=== PATIENT | male | born 1960 | race Caucasian/White ===

== ENCOUNTER 2019-10-08 18:29 | Inpatient (IN) | payer BC ==
[~2019-10-08] VITALS: Ht 180.3 cm; Wt 90.8 kg
[2019-10-08 21:23] VITALS: BP 116/70
[2019-10-08] MEDS ORDERED: DIOVAN HCT 25 M1 TA1 PO (22:22)
[2019-10-08] MEDS ORDERED: TOPROL XL 50MG50 MG PO (22:23)
--- NOTE | 2019-10-08 22:30 | NUR ---
Admitted to room 306 on medical floor- contact and droplet Isolation ,, trasferred from [facility]- VSS, pleasant, alert/oriented, states has no pain/SOB --just very weak-- voiding nakia urine, pt is jaundiced, Hodan FLANNERY here to do admission- will send him down for CT and CXR when radiology is available. Tele put on per orders-
[2019-10-08 23:33] LABS: PROTHROMBIN TIME 11.2 SECONDS (9.7-12.8)
[2019-10-08 23:35] LABS: PARTIAL THROMBOPLASTIN TIME 31.3 SECONDS (26.0-37.0)
[2019-10-08 23:36] LABS: CREATININE, serum 1.22 (0.66-1.25); MAGNESIUM 1.6 mg/dL (1.6-2.3); PHOSPHOROUS 3.6 mg/dL (2.5-4.5)
[2019-10-08 23:38] LABS: POTASSIUM 2.8 mmol/L (3.4-5.0)
[2019-10-09] VITALS (7 sets, daily range): BP systolic 106–130; BP diastolic 50–82; PULSE 70–84; TEMP 96.7–98.2
[2019-10-09 03:09] LABS: TRICYCLIC ANTIDEPRESS URINE NEGATIVE
[2019-10-09 04:11] LABS: MEAN CELL VOLUME 97 fl (80.0-100.0); MEAN CORPUSCULAR HGB CONC 34 g/dl (33.0-37.0); MEAN PLATELET VOLUME 10.5 fl (7.4-10.4); PLATELET COUNT 229 K/mm3 (130-400); RED BLOOD COUNT 2.59 M/mm3 (4.20-5.60); REDCELL DISTRIBUTION WIDTH-CV 12.9 % (11.5-14.5)
[2019-10-09 04:12] LABS: HEMOGLOBIN 8.5 g/dl (13.5-18.0); MEAN CORPUSCULAR HEMOGLOBIN 33 pg (27.0-31.0)
[2019-10-09 04:19] LABS: ALBUMIN 3.5 gm/dL (3.5-5.0); BILIRUBIN,TOTAL 5.5 mg/dL (0.0-1.0); CALCIUM 8.6 mg/dL (8.4-10.2); CREATININE, serum 1.07 (0.66-1.25); POTASSIUM 3.4 mmol/L (3.4-5.0); TOTAL PROTEIN 6.8 gm/dL (6.4-8.2)
[2019-10-09 05:00] LABS: BAND 17 % (0-10); EOSINOPHIL 1 % (0-4); LYMPHOCYTE 17 % (20.0-51.0); NEUTROPHILS 55 % (42.0-75.2); PLATELET ESTIMATE NORMAL (NORMAL); STOMATOCYTE 1+
--- NOTE | 2019-10-09 05:19 | NUR ---
Did have the CT scan done during the night-- VSS, IV fluids now at 100cc/hr, voiding good amounts, denies pain, states just weak-- did not sleep due to meds/procedures all night--
[2019-10-09 10:37] LABS: BASO # 0.1 (0.0-0.2); BASO % 0.8 % (0.0-2.0); EOS # 0.1 (0.0-0.7); EOS % 1.1 % (0-4.0); GRAN # 5.6 (1.4-6.5); GRAN % 67.1 % (42.2-75.2); LYMPH # 1.5 (1.2-3.4); LYMPH % 17.7 % (20.0-51.0); MEAN CELL VOLUME 98 fl (80.0-100.0); MEAN CORPUSCULAR HGB CONC 34 g/dl (33.0-37.0); MEAN PLATELET VOLUME 11.2 fl (7.4-10.4); MONO % 11.6 % (1.7-9.3); PLATELET COUNT 222 K/mm3 (130-400); RED BLOOD COUNT 2.43 M/mm3 (4.20-5.60); REDCELL DISTRIBUTION WIDTH-CV 13.1 % (11.5-14.5)
--- NOTE | 2019-10-09 10:37 | NUR ---
Patient is alert and oriented. denies any pain. Addominal ultrasound was done. 1999 fluid restriction -no free water.1/2NS 100ML IV DISCONTINUED. Dr Latif visited patient.
[2019-10-09 10:38] LABS: HEMATOCRIT 23.7 % (42.0-52.0); MEAN CORPUSCULAR HEMOGLOBIN 33 pg (27.0-31.0)
--- NOTE | 2019-10-09 16:28 | NUR ---
Department Director spoke with patient standing at his door. SW attempted to call patient as he is in contact isolation and patient was not able to hear SW over the phone. Patient lives in [place] with his Carolyn (ph#[phone]) and sees Dr. Lynn for primary care. Patient obtains medications from [facility] with no difficulties. Patient uses hearing aides and no other DME. Patient reports independence with ADLS and plans to return home upon discharge. Patient states he is fairly certain he has a living will completed. No additional needs identified at this time.
--- NOTE | 2019-10-09 20:11 | NUR ---
Denies any pain. Detox score is 0. Call light beside patient. Patient signed health record release form from [facility].
[2019-10-10 00:14] VITALS: BP 115/60; PULSE 90; TEMP 97.1
[2019-10-10 04:22] VITALS: BP 118/68; PULSE 84; TEMP 98.2
[2019-10-10 07:06] LABS: RETIC # 0.14 M/mm3 (0.02-0.16); RETIC % 5.7 % (0.5-3.52)
[2019-10-10 07:14] VITALS: BP 110/67; PULSE 77; TEMP 98.3
[2019-10-10 07:19] LABS: ALBUMIN 3.6 gm/dL (3.5-5.0); BILIRUBIN UNCONJUGATED 1.3 mg/dL (0.0-1.1); BILIRUBIN,DIRECT 3.2 mg/dL (0.0-0.4); BILIRUBIN,TOTAL 4.6 mg/dL (0.0-1.0); POTASSIUM 3.7 mmol/L (3.4-5.0)
[2019-10-10 07:20] LABS: IRON,SERUM 119 ug/dL (35-150)
[2019-10-10 07:24] LABS: PROTHROMBIN TIME 11.2 SECONDS (9.7-12.8)
[2019-10-10 07:30] LABS: TOTAL IRON BINDING CAPACITY 228 ug/dL (261-462)
--- NOTE | 2019-10-10 07:45 | NUR ---
PT IN BED IN PLEASANT MOOD, EAGER TO LEAVE. DENYING PAIN OR DISCOMFORT, MEDICATIONS GIVEN, ASSESSMENT PERFORMED, GATORADE BROUGHT IN PER PT REQUEST. NO OTHER NEEDS AT THIS TIME. PT SCLERA JAUNDICED.
[2019-10-10 08:31] LABS: MEAN CELL VOLUME 101 fl (80.0-100.0); MEAN CORPUSCULAR HGB CONC 33 g/dl (33.0-37.0); MEAN PLATELET VOLUME 10.7 fl (7.4-10.4); PLATELET COUNT 275 K/mm3 (130-400); RED BLOOD COUNT 2.49 M/mm3 (4.20-5.60); REDCELL DISTRIBUTION WIDTH-CV 13.3 % (11.5-14.5)
[2019-10-10 08:37] LABS: HEMATOCRIT 25.2 % (42.0-52.0); HEMOGLOBIN 8.3 g/dl (13.5-18.0); MEAN CORPUSCULAR HEMOGLOBIN 33 pg (27.0-31.0)
[2019-10-10 08:40] LABS: CALCIUM 9.2 mg/dL (8.4-10.2); CREATININE, serum 1.13 (0.66-1.25); MAGNESIUM 1.8 mg/dL (1.6-2.3); POTASSIUM 3.8 mmol/L (3.4-5.0)
[2019-10-10 09:26] LABS: BAND 6 % (0-10); LYMPHOCYTE 20 % (20.0-51.0); METAMYELOCYTE 1 % (0-0); MYELOCYTE 1 % (0-0); NEUTROPHILS 65 % (42.0-75.2); PLATELET ESTIMATE NORMAL (NORMAL)
[2019-10-10] MEDS ORDERED: MAG-OX 400400 MG/TAB PO (09:48)
[2019-10-10] MEDS ORDERED: THIAMINE 1100 MG/TAB PO (09:48)
[2019-10-10] MEDS ORDERED: FOLIC ACID 11 MG/TA1 PO (09:48)
[2019-10-10] MEDS ORDERED: DUO-KAPS1 CAP PO (09:48)
--- NOTE | 2019-10-10 10:46 | NUR ---
Bb Shot Packer attended clinical rounds with the team today. Patient to discharge home today. No additional needs at this time.
--- NOTE | 2019-10-10 10:57 | NUR ---
First visit from the dial printer. No needs right now.
--- NOTE | 2019-10-10 12:30 | NUR ---
PT LEFT FLOOR WTIH BELONGINGS, DISCHARGE EDUCATION PROVIDED, IV DC'D.
[2019-10-11 03:56] LABS: CERULOPLASMIN 46 mg/dL (20-60)
[2019-10-11 10:43] LABS: ALPHA 1 ANTITRYPSIN TOTAL 191.2 mg/dL (())
[2019-10-11 13:46] LABS: ANA SCREEN with REFLEX Negative (Negative)
[2019-10-15 12:30] LABS: ANTISMOOTH MUSCLE ANTIBODY Negative (Negative)
== END 2019-10-10 12:30 | disposition home or self-care (01) | DRG 442 ==
LOC: MEDICAL 18:29
PROVIDERS: Internal Medicine Gastroenterology; Nurse Practitioner Family; Physician Assistant; ADMIT Internal Medicine
DX: K70.0 Alcoholic fatty liver (principal); E87.1 Hypo-osmolality and hyponatremia; N17.9 Acute kidney failure, unspecified; F10.10 Alcohol abuse, uncomplicated; I10 Essential (primary) hypertension; R74.0 Nonspecific elevation of levels of transaminase and lactic acid dehydrogenase [LDH]; E80.6 Other disorders of bilirubin metabolism; E87.6 Hypokalemia; E83.42 Hypomagnesemia; R73.9 Hyperglycemia, unspecified; D64.9 Anemia, unspecified; Z20.828 Contact with and (suspected) exposure to other viral communicable diseases; Z87.891 Personal history of nicotine dependence; Z96.653 Presence of artificial knee joint, bilateral
CPT/HCPCS: 99223-AI; 99232-AI; 99239; J3411; J3475; J7030

== ENCOUNTER 2023-06-03 12:06 | Inpatient (IN) | payer BC ==
[~2023-06-03] VITALS: Ht 180.3 cm; Wt 102.0 kg
[~2023-06-03 12:06] MED LIST: DIOVAN HCT 25 M1 TA1 PO; DUO-KAPS1 CAP PO; FOLIC ACID 11 MG/TA1 PO; MAG-OX 400400 MG/TAB PO; THIAMINE 1100 MG/TAB PO; TOPROL XL 50MG50 MG PO
[2023-06-03 12:23] LABS: HEMOGLOBIN 11.6 g/dl (13.5-18.0); MEAN CELL VOLUME 103 fl (80.0-100.0); MEAN CORPUSCULAR HEMOGLOBIN 34 pg (27-31); MEAN CORPUSCULAR HGB CONC 33 g/dl (33.0-37.0); MEAN PLATELET VOLUME 11.2 fl (7.4-10.4); PLATELET COUNT 222 K/mm3 (130-400); RED BLOOD COUNT 3.39 M/mm3 (4.20-5.60); REDCELL DISTRIBUTION WIDTH-CV 13.6 % (11.5-14.5)
[2023-06-03 12:25] LABS: HEMATOCRIT 34.8 % (42.0-52.0)
[2023-06-03 12:30] LABS: INR 1.2 (0.8-3.0); PROTHROMBIN TIME 13.1 SECONDS (9.7-12.8)
[2023-06-03] MEDS ORDERED: NS 1,000 ML IV ONE (12:30)
[2023-06-03 13:05] LABS: BAND 21 % (0-10); LYMPHOCYTE 8 % (20.0-51.0); METAMYELOCYTE 2 % (0-0); NEUTROPHILS 63 % (42.0-75.2); PLATELET ESTIMATE NORMAL (NORMAL)
[2023-06-03 13:40] LABS: CREATININE, serum 1.96 mg/dL (0.72-1.25); POTASSIUM 3.7 mmol/L (3.5-4.5)
[2023-06-03 13:41] LABS: ALBUMIN 3.6 gm/dL (3.4-4.8); CALCIUM 8.9 mg/dL (8.4-10.2); TOTAL PROTEIN 6.7 gm/dL (6.2-8.1)
[2023-06-03 13:55] LABS: BILIRUBIN,TOTAL 1.2 mg/dL (0.2-1.2)
[2023-06-03] MEDS ORDERED: LR 1,000 ML IV ONE (14:15)
[2023-06-03] MEDS ORDERED: Acetaminophen 325 MG TAB PO PRN (14:30)
[2023-06-03] MEDS ORDERED: Docusate Sodium 100 MG CAP PO PRN (14:30)
[2023-06-03] MEDS ORDERED: Ondansetron 4 MG/2 ML VIAL IV PRN (14:30)
[2023-06-03] MEDS ORDERED: LORazepam 1 MG TAB PO PRN (14:30)
[2023-06-03] MEDS ORDERED: NS 1,000 ML IV SCH (14:30)
[2023-06-03] MEDS ORDERED: Folic Acid 1 MG,Thiamine 200 MG in NS 1,000 ML IV ONE (14:30)
[2023-06-03] MEDS ORDERED: LORazepam 2 MG/ML 1 ML VIAL IV PRN (14:30)
[2023-06-03] MEDS ORDERED: Polyethylene Glycol 3350 17 GM PDS PO PRN (14:30)
[2023-06-03] MEDS ORDERED: [UNRECOGNIZED DRUG - OTHER] IV ONE (14:45)
[2023-06-03] MEDS ORDERED: THIAMINE IV ONE ×2 (14:45→15:15)
[2023-06-03] MEDS ORDERED: NS IV ONE (14:45)
[2023-06-03 14:52] LABS: MAGNESIUM 2.6 mg/dL (1.6-2.6); PHOSPHOROUS 8.2 mg/dL (2.3-4.7)
[2023-06-03] MEDS ORDERED: Cefepime 1 G in Water For Injection,Sterile 10 ML IV SCH ×2 (15:00→18:00)
[2023-06-03] MEDS ORDERED: SODIUM CHLORIDE IV ONE (15:15)
[2023-06-03] MEDS ORDERED: FOLIC ACID 1 MG IV ONE (15:15)
--- NOTE | 2023-06-03 16:20 | NUR ---
Patient to room 316 from the ED with at the bedside. A&Ox4. VSS, HR tachy. IV CDI, fluids infusing. Denies pain, reports discomfort in abdomen r/t needing to urinate, but unable to. Bladder scan 425ml in bladder. Doctor aware. Nurse oriented the patient to location, call light and room. Detox protocol in place.
[2023-06-03] MEDS ORDERED: MELATONIN5 M1 SL (16:24)
[2023-06-03] MEDS ORDERED: Multivitamin TAB PO SCH (17:00)
[2023-06-03] MEDS ORDERED: ALEVE 220MG220 MG PO (17:41)
[2023-06-03] MEDS ORDERED: CULTURELLE1 EAC1 PO (17:42)
[2023-06-03 19:20] LABS: COLLECTION METHOD CLEAN CATCH
[2023-06-03 19:49] LABS: PH 5.5 (5.0-8.5); URINE APPEARANCE Turbid (CLEAR/HAZY); URINE BACTERIA Many /hpf (NONE SEEN); URINE BLOOD 2+ (NEGATIVE); URINE COLOR Yellow (YELLOW); URINE GLUCOSE Negative (NEGATIVE); URINE KETONE 1+ (NEGATIVE); URINE NITRATE Negative (NEGATIVE); URINE PROTEIN(semi-quant) 1+ (NEGATIVE); URINE UROBILINOGEN 0.2 E.U/dL (0.2-1.0)
[2023-06-03 20:00] VITALS: BP 141/68; PULSE 120; TEMP 97.5
[2023-06-03] MEDS ORDERED: Thiamine 100 MG TAB PO SCH (21:00)
--- NOTE | 2023-06-03 22:31 | NUR ---
patient lying in bed alert and oriented x4. pt denies chest pain and shortenss of breath. per pt request [id number]- SHER Schroeder notified of pt indigestion, order for TUMs placed. pt up to ambulate x1 assist and gait belt to bathroom with weak gait, pt visibly short of breath only on exertion and occasional wheezing noted on recovery o2 sats 96% on RA, wheezing and shortness of breath gone overtime with rest. IV in RAC and RF are patent sites clean dry and intact with NS running at 83 ml/hr in RF. right shoulder laceration x2 with stitches, covered with non adherant pads and foam dressings, closed right schaffer abrasion, deep bruising with swelling on left upper thigh, small scattered bruising and scabs noted on extremities, blanchable rash-like redness on chest/neck/back per pt and is chronic, "has been there for a long time". pt has no further needs, questions or concerns at this time. pt requested all four side rails up, education to pt and about how to take side rail down, pt and able to verbally understanding and demonstrate taking rail down on their own. fall precautions in place, call light within reach, will continue to monitor.
[2023-06-03 22:48] VITALS: BP 153/74; PULSE 121; TEMP 98.2
[2023-06-04] VITALS (16 sets, daily range): BP systolic 129–171; BP diastolic 72–89; PULSE 96–121; TEMP 96–98.9
--- NOTE | 2023-06-04 08:00 | NUR ---
Patient awake in bed, at the bedside. A&Ox4. VSS, HR tachy. IV CDI, fluids infusing. Reports some discomfort from fall. Detox protocol in place. Call light within reach. Bed alarm on
[2023-06-04 08:23] LABS: BASO % 0.5 % (0.0-2.0); GRAN # 3.9 K/mm3 (1.4-6.5); GRAN % 63.4 % (42.2-75.2); LYMPH # 1.2 K/mm3 (1.2-3.4); LYMPH % 19.3 % (20.0-51.0); MEAN CORPUSCULAR HGB CONC 36 g/dl (33.0-37.0); MEAN PLATELET VOLUME 11.9 fl (7.4-10.4); MONO % 16.3 % (1.7-9.3); RED BLOOD COUNT 2.38 M/mm3 (4.20-5.60); REDCELL DISTRIBUTION WIDTH-CV 14.1 % (11.5-14.5)
[2023-06-04 08:35] LABS: HEMATOCRIT 22.8 % (42.0-52.0); MEAN CELL VOLUME 96 fl (80.0-100.0); MEAN CORPUSCULAR HEMOGLOBIN 34 pg (27-31); PLATELET COUNT 108 K/mm3 (130-400)
[2023-06-04 08:36] LABS: HEMOGLOBIN 8.1 g/dl (13.5-18.0)
[2023-06-04 08:44] LABS: ALBUMIN 3.2 gm/dL (3.4-4.8); BILIRUBIN,TOTAL 1.5 mg/dL (0.2-1.2); CALCIUM 8.1 mg/dL (8.4-10.2); CREATININE, serum 0.74 mg/dL (0.72-1.25); MAGNESIUM 1.7 mg/dL (1.6-2.6); POTASSIUM 3.3 mmol/L (3.5-4.5); TOTAL PROTEIN 5.5 gm/dL (6.2-8.1)
[2023-06-04] MEDS ORDERED: Folic Acid 1 MG TAB PO SCH (09:00)
[2023-06-04] MEDS ORDERED: *Potassium Replacement Protocol MC SCH (09:45)
[2023-06-04] MEDS ORDERED: Magnesium Sulfate 4% 50 ML IV ONE (09:45)
[2023-06-04] MEDS ORDERED: Potassium Bicarbonate/Citrate 20 MEQ Effervescent TAB PO SCH (09:45)
--- NOTE | 2023-06-04 11:08 | NUR ---
SW met with patient to complete intake. Patient confirmed that he resides with his spouse Carolyn Joaquin [phone], patient informed SW that he does have DPOA at his home. Patient reports that PCP is Dr Zee and pharmacy of [facility]. 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 Local substance use providers/treatment information will be provided to patient. D/C plan: pending further medical recommendations
[2023-06-04] MEDS ORDERED: Vancomycin 1.25 GM,Special Dose/Pharmacy Prepared 1.25 GM in NS 250 ML IV SCH (14:00)
--- NOTE | 2023-06-04 20:30 | NUR ---
Patient resting in bed with at bedside. Denies any pain except for slight pain on his right shoulder. Assessment complete. IV in right AC flushes easily with no complications. IV in right wrist infusing with no complications. Patient stated he would like something to help him sleep tonight. Call light and personal items in reach. Bed in low position and bed alarm on.
--- NOTE | 2023-06-04 21:45 | NUR ---
Hospitalist Alexandre called to get something to help patient sleep per patient request. Recieved orders for 100mg PO trazadone qHS PRN.
[2023-06-04] MEDS ORDERED: traZODone 100 MG TAB PO PRN (22:00)
[2023-06-05] VITALS (263 sets, daily range): BP systolic 114–179; BP diastolic 70–98; PULSE 66–129; TEMP 97.2–98.4; O2SAT 94–100
--- NOTE | 2023-06-05 00:30 | NUR ---
Patient is very agitated and restless at this time and continues to repeat that he wants to get dressed and go home now. Patient is still seeing people/ things that are not there. Attemped to reorient patient and get patient back in bed. Patient is cooperative however still states he is going home. Patient scored 22 on CIWA @0037. 4mg IV Ativan given per protocol. Patient is still very aggitated and anxious @0120 and scoring 23 on CIWA. Hospitalist Alexandre contacted and notified of patients CIWA scores and current state of aggitation and anxiousness. Recieved orders to give 50mg PO librium now and another 2mg of IV Ativan, meds given. Instructed to call back if aggitation, anxiousness, and requests to leave now continue. Patient scoring 21 on CIWA @0320. When asked how many people are in the room patient looked past this nurse on the wall and stated "About 10 people." and then states "I need my shirt, pants, and shoes and I'm going to get the fuck out of here." Hospitalist called and notifed. Recieved orders to transfer to ICU, go ahead and give 4mg IV Ativan, and states he will be up to see him shortly.
[2023-06-05] MEDS ORDERED: Magnesium Sulfate 4% 50 ML IV ONE (03:45)
--- NOTE | 2023-06-05 04:22 | NUR ---
Report called to CARLOS Traylor in ICU. Patient is currently sleeping and will transfer him down when he starts to wake up.
--- NOTE | 2023-06-05 06:30 | NUR ---
Patient attempting to get out of bed again this morning. Patient almost pulled out 18G in right AC, was able to save IV site and new dressing applied. Patient is now scoring 15 on CIWA, 2mg IV ativan given. Patient has recieved a total of 14MG IV Ativan and 50mg PO librium from 06/04 @9296 to 06/05 @0639. Patient now resting back in bed. Call light and personal items in reach. Bed in low position and bed alarm on.
[2023-06-05 07:21] LABS: BASO # 0.1 K/mm3 (0.0-0.2); EOS % 0.2 % (0.0-4.0); GRAN # 2.9 K/mm3 (1.4-6.5); GRAN % 60.4 % (42.2-75.2); HEMATOCRIT 23.1 % (42.0-52.0); HEMOGLOBIN 7.8 g/dl (13.5-18.0); LYMPH # 1.1 K/mm3 (1.2-3.4); LYMPH % 21.6 % (20.0-51.0); MEAN CELL VOLUME 100 fl (80.0-100.0); MEAN CORPUSCULAR HEMOGLOBIN 34 pg (27-31); MEAN CORPUSCULAR HGB CONC 34 g/dl (33.0-37.0); MEAN PLATELET VOLUME 11.9 fl (7.4-10.4); MONO # 0.8 K/mm3 (0.1-0.6); MONO % 16.4 % (1.7-9.3); PLATELET COUNT 101 K/mm3 (130-400)
[2023-06-05 07:42] LABS: ALBUMIN 3.1 gm/dL (3.4-4.8); BILIRUBIN,TOTAL 1.8 mg/dL (0.2-1.2); CALCIUM 8.2 mg/dL (8.4-10.2); CREATININE, serum 0.63 mg/dL (0.72-1.25); MAGNESIUM 2.2 mg/dL (1.6-2.6); POTASSIUM 3.4 mmol/L (3.5-4.5); TOTAL PROTEIN 5.5 gm/dL (6.2-8.1)
[2023-06-05] MEDS ORDERED: Potassium Bicarbonate/Citrate 20 MEQ Effervescent TAB PO SCH (08:00)
--- NOTE | 2023-06-05 10:10 | NUR ---
Initial visit; Patient continues to sleep, hand shoe cutter left card with his offering God's blessings and letting her know of the availability of Spiritual Care at our hospital. She thanked Chaplain shyann holden.
--- NOTE | 2023-06-05 11:52 | NUR ---
PT HAS BEEN AGGITATED SINCE START OF SHIFT CHANGE FOR ELECTROLYSIS ENGINEER. INITIALLY SCORED A 21 ON CIWA AND WAS GIVEN 4MG IV ATIVAN, WHICH DID HELP SOME. 1000 CIWA WAS 8, BUT PT WAS GROGGY STILL ELECTROLYSIS ENGINEER HAD WOKEN HIM UP TO ASSESS. WHEN ELECTROLYSIS ENGINEER WENT TO TAKE PT TEMPERATURE AND VITALS PT STATED "WHATEVER THAT WAS, IF IT HAPPENS AGAIN I WILL KILL EVERYONE IN THIS PLACE". ELECTROLYSIS ENGINEER TOLD PT THAT WE WERE JUST TRYING TO GET HIS VITAL SIGNS TO MAKE SURE THAT HE WAS DOING OKAY. PT WAS IRRITATED AT THIS RESPONSE AND STARTED THROWING HIS BLANKETS AND DEMANDING TO GET HIS CLOTHES AND SHOES SO HE COULD LEAVE. ELECTROLYSIS ENGINEER TOLD PT THAT HE COULD NOT LEAVE AT THIS TIME HE WAS DETOXING, AND THAT IT WAS SAFER FOR HIM TO STAY HERE. PT SETTLED FOR A FEW MINUTES SO WROTER COULD CONTINUE CIWA QUESTIONS. WHEN ELECTROLYSIS ENGINEER ASKED IF PT WAS HAVING ANY VISUAL DISTURBANCES HE STATED "JUST YOUY" IN REFERENCE TO ELECTROLYSIS ENGINEER. PT THEN TRIED GETTING OUT OF BED AGAIN AND THROWING HIS BLANKETS. PT WAS AT BEDSIDE AND ALSO TRIED TO CALM HIM DOWN. 1MG IV ATIVAN WAS ADMINISTERED WHILE WAS TALKING TO PT AND EXPLAINING HE COULD NOT GO HOME. PT LOOKED AT HIS AND STATED "WHY ARE YOU DOING THIS TO ME? THIS IS BULLSHIT". ELECTROLYSIS ENGINEER GAVE PT A FEW MINUTES FOR IV ATIVAN TO TAKE EFFECT AND THEN GOT TECH TO ASSIST WITH PUTTING MESH PANTIES AND A NEW GOWN ON THE PT HE HAD PREVIOUSLY TORN HIS OFF. PT ALSO HAS RIPPED OFF TELEMETRY THIS MORNING AND IS REFUSING TO WEAR IT.
[2023-06-05] MEDS ORDERED: NS IV SCH (12:00)
[2023-06-05] MEDS ORDERED: DEXMEDETOMIDINE IV SCH (12:00)
--- NOTE | 2023-06-05 16:02 | NUR ---
PT TRANSFERRED TO ICU-07 @ 1500
--- NOTE | 2023-06-05 16:20 | NUR ---
generator worker attended morning clincial rounds and Dr. Justice mentioned pt is aggressive per nursing and would potentially be transferred for ICU. Discharge Plan: tbd
--- NOTE | 2023-06-05 19:30 | NUR ---
Received report from day shift nurse, June. Pt is sleeping in bed with the bed alarms on and call light within reach. Pt is on fluids and precedex. Vitals are stable at this time.
[2023-06-06] VITALS (1190 sets, daily range): BP systolic 130–169; BP diastolic 71–97; PULSE 64–83; TEMP 97.8–98.3; O2SAT 89–100
[2023-06-06 06:18] LABS: BASO # 0.1 K/mm3 (0.0-0.2); BASO % 1.2 % (0.0-2.0); EOS # 0.1 K/mm3 (0.0-0.7); EOS % 2.1 % (0.0-4.0); GRAN # 3.8 K/mm3 (1.4-6.5); GRAN % 67.8 % (42.2-75.2); LYMPH % 17.1 % (20.0-51.0); MEAN CELL VOLUME 100 fl (80.0-100.0); MEAN CORPUSCULAR HGB CONC 34 g/dl (33.0-37.0); MEAN PLATELET VOLUME 11.5 fl (7.4-10.4); MONO # 0.6 K/mm3 (0.1-0.6); MONO % 10.9 % (1.7-9.3); PLATELET COUNT 125 K/mm3 (130-400); RED BLOOD COUNT 2.56 M/mm3 (4.20-5.60); REDCELL DISTRIBUTION WIDTH-CV 14.2 % (11.5-14.5)
[2023-06-06 06:25] LABS: HEMATOCRIT 25.7 % (42.0-52.0); HEMOGLOBIN 8.8 g/dl (13.5-18.0); MEAN CORPUSCULAR HEMOGLOBIN 34 pg (27-31)
--- NOTE | 2023-06-06 06:29 | NUR ---
Pt had an uneventful night. Pt's vitals have been stable throughout the night. Pt was confused at the beginning of the shift and then became oriented x4 at the [address] assessment. Pt denied pain throughout the night. Pt slept most of the night. Pt still on precedex and NS. Pt is resting in bed with the call light within reach and bed alarms on at this time.
[2023-06-06 06:41] LABS: ALBUMIN 3.2 gm/dL (3.4-4.8); BILIRUBIN,TOTAL 1.7 mg/dL (0.2-1.2); CALCIUM 8.4 mg/dL (8.4-10.2); CREATININE, serum 0.62 mg/dL (0.72-1.25); MAGNESIUM 1.9 mg/dL (1.6-2.6); POTASSIUM 3.9 mmol/L (3.5-4.5); TOTAL PROTEIN 5.9 gm/dL (6.2-8.1)
--- NOTE | 2023-06-06 07:30 | NUR ---
Resting in bed; Awakens easily with verbal stimulation. Cooperative with assessment but has visible tremors and does endorse feeling anxious. Scored CIWA per protocol. Call light within reach and bed alarm activated.
[2023-06-06] MEDS ORDERED: Potassium Bicarbonate/Citrate 20 MEQ Effervescent TAB PO ONE (10:15)
--- NOTE | 2023-06-06 12:12 | NUR ---
Patient up from bed and ambulated in the hallway with PT. Tolerated well. Currenlty resting in bed and visiting with family at bedside. No concerns at this time.
[2023-06-07] VITALS (774 sets, daily range): BP systolic 110–181; BP diastolic 57–100; PULSE 16–118; TEMP 97.8–98.6; O2SAT 67–100
[2023-06-07 05:42] LABS: BASO # 0.1 K/mm3 (0.0-0.2); BASO % 0.9 % (0.0-2.0); EOS # 0.2 K/mm3 (0.0-0.7); EOS % 2.4 % (0.0-4.0); GRAN % 66.4 % (42.2-75.2); LYMPH # 1.3 K/mm3 (1.2-3.4); LYMPH % 16.7 % (20.0-51.0); MEAN CELL VOLUME 100 fl (80.0-100.0); MEAN CORPUSCULAR HGB CONC 34 g/dl (33.0-37.0); MEAN PLATELET VOLUME 11.2 fl (7.4-10.4); MONO # 0.9 K/mm3 (0.1-0.6); MONO % 12.5 % (1.7-9.3); PLATELET COUNT 145 K/mm3 (130-400); REDCELL DISTRIBUTION WIDTH-CV 13.8 % (11.5-14.5)
[2023-06-07 05:46] LABS: HEMATOCRIT 25.9 % (42.0-52.0); HEMOGLOBIN 8.9 g/dl (13.5-18.0); MEAN CORPUSCULAR HEMOGLOBIN 34 pg (27-31)
[2023-06-07 05:58] LABS: BILIRUBIN,TOTAL 1.8 mg/dL (0.2-1.2); CALCIUM 8.6 mg/dL (8.4-10.2); CREATININE, serum 0.63 mg/dL (0.72-1.25); POTASSIUM 3.7 mmol/L (3.5-4.5); TOTAL PROTEIN 5.9 gm/dL (6.2-8.1)
[2023-06-07] MEDS ORDERED: Potassium Bicarbonate/Citrate 20 MEQ Effervescent TAB PO SCH (06:15)
[2023-06-07] MEDS ORDERED: *Potassium Replacement Protocol MC SCH (06:15)
[2023-06-07] MEDS ORDERED: diphenhydrAMINE 25 MG CAP PO PRN (10:30)
--- NOTE | 2023-06-07 17:52 | NUR ---
machine lay out worker was notified patient's family would like information on treatment options for alcohol rehab. SW met with patient and his family ( and daughter). Patient does not remember a social worker masters coming when he initially came to the hospital, so social worker masters went through the initial assessment again. Patient lives in [place] with his , Carolyn, P# [phone]. PCP is currently Dr. Lynn but they are looking at switching to Dr. Shaw. Pharmacy is [facility], no issues with affording medications. Insurance is [employer]. Patient has a DPOA-HC which appoints Carolyn as primary then Brittany and Jass as alternates. Patient reports no DME and was previously independent with ADLS. Patient had questions about what sleep aide would be best for him as he was having trouble sleeping. SW discussed what options he has used and expressed she would discuss this with the nurse to determine if the doctor would recommend anything else that would work better for him. SW discussed treatment options in the area for outpatient and inpatient alcohol rehab. Patient reported that he has a plan. SW asked for his plan. Patient stated that he is going to stop drinking beer and will drink seltzer water. Patient reports this situation woke him up and he does not want to end up back in the hospital for these situations. SW expressed she was going to give him and his family the resources in case he were to get home and feel it would be beneficial to have some support/services in place. PAU provided the list of resources in the area along with AA meetings in [place]. PAU will continue to monitor to determine if patient needs additional services at time of discharge. PAU notified patient's nurse of the above information and asked if she would discuss potential sleep aides with the patient or hospitalist to determine if there was another option for him that may be better suited. Discharge Plan: Home
--- NOTE | 2023-06-07 21:55 | NUR ---
PATIENT TO MEDICAL ROOM 318 NURSE REPORT GIVEN TO MARC GONZALEZ PATIENT AMBULATES TO CHAIR and BED UNASSISTED WITH OUT DIFFICULTY, STAFF ON STANDBY NEAR PATIENT
--- NOTE | 2023-06-07 22:41 | NUR ---
patient arrived from ICU at 2150, alert and oriented x4. pt denies chest pain, nausea, headaches, anxiety. shortness of breath only on exertion. IV in RAC and RF are patent, sites are clean dry and intact. right shoulder laceration with stiches and aqucell dressings applied, left elbow with small skin tear and aquacell dressing, all clean dry and intact. small scattered bruising and scabs on right leg and extremities, large deep bruising to upper left thigh with small swelling, small closed scratch near right eyebrow noted. pt ambulating in room with standby assist and steady gait. pt has no further needs, questions or concerns. educated on using call light due to fall precautions when needing to get up, pt verbally understood. fall precautions in place, call light within reach. will continue to monitor.
[2023-06-08] MEDS ORDERED: hydrALAZINE 20 MG/ML 1 ML VIAL IV PRN (01:00)
--- NOTE | 2023-06-08 01:04 | NUR ---
AMMY SIMON NOTIFIED OF BPs 170s/90s, ORDER FOR HYDRALAZINE READ BACK AND PLACED AT THIS THIS TIME
[2023-06-08 02:35] VITALS: BP 179/82; PULSE 114; TEMP 98
[2023-06-08 04:54] VITALS: BP 180/90; PULSE 128; TEMP 98.3
[2023-06-08 05:42] VITALS: BP 176/87; PULSE 112; TEMP 98.2
[2023-06-08 06:24] LABS: HEMOGLOBIN 10.2 g/dl (13.5-18.0); MEAN CELL VOLUME 98 fl (80.0-100.0); MEAN CORPUSCULAR HEMOGLOBIN 33 pg (27-31); MEAN CORPUSCULAR HGB CONC 34 g/dl (33.0-37.0); MEAN PLATELET VOLUME 11.4 fl (7.4-10.4); PLATELET COUNT 198 K/mm3 (130-400); RED BLOOD COUNT 3.05 M/mm3 (4.20-5.60); REDCELL DISTRIBUTION WIDTH-CV 14.6 % (11.5-14.5)
[2023-06-08 06:32] VITALS: BP 147/79; PULSE 95
[2023-06-08 06:40] LABS: CALCIUM 9.4 mg/dL (8.4-10.2); CREATININE, serum 0.71 mg/dL (0.72-1.25); POTASSIUM 3.4 mmol/L (3.5-4.5)
[2023-06-08] MEDS ORDERED: Potassium Bicarbonate/Citrate 20 MEQ Effervescent TAB PO SCH (07:15)
[2023-06-08 07:50] VITALS: BP 159/77; PULSE 99; TEMP 98.2
--- NOTE | 2023-06-08 08:55 | NUR ---
PATIENT ASSESSMENT COMPLETE. AXOX4. PATIENT IS SCORING 1S ON THE ETOH PROTOCOL THIS MORNING DUE TO ANXIETY. PATIENT IS A SBA TO THE RESTROOM. REMAINS ON POTASSIUM PROTOCOL. SEIZURE PRECAUTIONS X3 BEDRAILS UP BED ALARM ON.
[2023-06-08 09:06] LABS: BAND 2 % (0-10); EOSINOPHIL 1 % (0-4); LYMPHOCYTE 23 % (20.0-51.0); METAMYELOCYTE 1 % (0-0); NEUTROPHILS 59 % (42.0-75.2)
[2023-06-08 09:09] LABS: PLATELET ESTIMATE NORMAL (NORMAL)
[2023-06-08 09:10] LABS: ANISOCYTOSIS 1+
[2023-06-08 09:11] LABS: STOMATOCYTE 1+
[2023-06-08] MEDS ORDERED: LOPRESSOR 225 MG/TAB PO (09:47)
[2023-06-08] MEDS ORDERED: THIAMINE 1100 MG/TAB PO (09:48)
[2023-06-08] MEDS ORDERED: FOLIC ACID 11 MG/TA1 PO (09:48)
[2023-06-08] MEDS ORDERED: DUO-KAPS1 CAP PO (09:49)
[2023-06-08 09:57] VITALS: BP 146/82; PULSE 91; TEMP 98.1
--- NOTE | 2023-06-08 10:12 | NUR ---
blade worker was informed by SHER Landaverde that pt knows Dr. Cuevas and would like to be established with him. SW informed Mine Administrator Supervisor Liz. Discharge Plan: Home with resources
--- NOTE | 2023-06-08 10:58 | NUR ---
PATIENT RECEIVED DISCHARGE INSTRUCTIONS. AT THE BEDSIDE. PATIENT ACKNOWLEDGED UNDERSTANDING OF INSTRUCTIONS POST CARE AND FOLLOW UP APPOINTMENTS, WELL NEW MEDICATIONS ADDED TO BE PICKED UP AT THE PHARMACY. PATIENT IV WAS DC, TELEMETRY REMOVED.. PATIENT WAS DISCHARGED VIA WHEELCHAIR AND TRANSPORTED TO PATIENT ENTRANCE.
== END 2023-06-08 11:01 | disposition home or self-care (01) | DRG 872 ==
LOC: COL.ER 12:06 → MEDICAL 14:31 → ICU 14:31 → MEDICAL 06-07 21:44
PROVIDERS: Internal Medicine; Physician Assistant; ADMIT Hospitalist
DX: A41.9 Sepsis, unspecified organism (principal); N17.9 Acute kidney failure, unspecified; M62.82 Rhabdomyolysis; F10.239 Alcohol dependence with withdrawal, unspecified; E86.0 Dehydration; D64.9 Anemia, unspecified; D69.6 Thrombocytopenia, unspecified; I95.9 Hypotension, unspecified; I10 Essential (primary) hypertension; E80.6 Other disorders of bilirubin metabolism; S41.011A Laceration without foreign body of right shoulder, initial encounter; E87.6 Hypokalemia; E83.42 Hypomagnesemia
CPT/HCPCS: J0360; J0692; J1920; J2060; J2543; J3370; J3411; J3475; J7030; J7040; J7050; J7120